=== PATIENT | male | born 1985 | race Caucasian/White ===

== ENCOUNTER 2022-01-05 09:03 | Outpatient (CLI) | payer OTHER | END 2022-01-05 09:04 | disposition critical access hospital (66) | LOC: EMS 09:03 | DX: R44.0 Auditory hallucinations (principal); R44.1 Visual hallucinations; R41.0 Disorientation, unspecified; R23.8 Other skin changes; M79.89 Other specified soft tissue disorders; Z59.00 Homelessness unspecified | CPT/HCPCS: A0425; A0429 ==

== ENCOUNTER 2022-01-05 09:25 | Emergency (ER) | payer OTHER ==
--- NOTE | 2022-01-05 12:09 | ED Physician Documentation ---
PD HPI WOUND RECHECK - Stated complaint Stated Complaint: WOUND CHECK - Chief complaint Chief Complaint: Wound - Histroy obtained from History obtained from: Patient - History of Present Illness Location: Back, Right Lower Extremity, Right Hand (index finger) Timing - onset: How many weeks ago (2) Associated symptoms: Redness, Swelling, Drainage. No: Fever Similar symptoms before: Has not had sx before Recently seen: Other (is at [facility]) - Additional information Additional information: 36-year-old Leonardo Pantoja has been sent to the emergency department from [facility] for evaluation of some sores on his body. He indicates that he had abscesses to the right fingertip the right posterior calf and his left back about 2 weeks ago and these he lanced and drained. He was asked by the facility to come have these checked out as there was some redness around all of them. Review of Systems Constitutional: denies: Fever Eyes: denies: Decreased vision Ears: denies: Ear pain Nose: denies: Rhinorrhea / runny nose, Congestion Throat: denies: Sore throat Cardiac: denies: Chest pain / pressure, Palpitations Respiratory: denies: Dyspnea, Cough GI: denies: Abdominal Pain, Nausea, Vomiting, Constipation, Diarrhea : denies: Dysuria, Frequency Skin: reports: Lesions, Bite / sting Musculoskeletal: denies: Neck pain, Back pain, Extremity pain Neurologic: denies: Generalized weakness, Focal weakness, Numbness PD PAST MEDICAL HISTORY - Present Medications Home Medications: Ambulatory Orders Medication Instructions Recorded Confirmed Sulfamethox/Trimeth 800/160 1 each PO BID #10 tablet 01/05/22 [Bactrim Ds] - Allergies Allergies/Adverse Reactions: Allergies Allergy/AdvReac Type Severity Reaction Status Date / Time gabapentin AdvReac Unknown Verified 01/05/22 10:23 PD ED PE NORMAL - Vitals Vital signs reviewed: Yes (wide pulse pressure) - General General: Alert and oriented X 3, No acute distress, Well developed/nourished - HEENT HEENT: Atraumatic, PERRL, EOMI - Respiratory Respiratory: No respiratory distress - Derm Derm: Normal color, Warm and dry, Other (2 cm ulceration to the posterior right calf minimal surrounding erythema consistent with healing abscess similar appearance left back minimal inflammation right index with resolving abscess to the fingertip.) - Neuro Neuro: Alert and oriented X 3, motion 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 2-12 intact, No motor deficit, No sensory deficit, Normal speech Eye Opening: Spontaneous Motor: Obeys Commands Verbal: Oriented GCS Score: 15 - Psych Psych: Normal mood, Normal affect Results - Vitals Vitals: Vital Signs - 24 hr 01/05/22 01/05/22 10:17 12:47 Temperature 36.7 C 36.7 C Heart Rate 69 65 Respiratory 14 16 Rate Blood Pressure 102/50 L 105/68 O2 Saturation 100 99 Oxygen O2 Source Room air PD MEDICAL DECISION MAKING - ED course Complexity details: considered differential, d/w patient ED course: 36-year-old male undergoing treatment apply to a was sent to the emergency department for evaluation of some healing abscesses. These do not appear significantly inflamed we will place patient on a short course of antibiotic and have her use warm compresses for resolution. Departure - Departure Disposition: 01 Home, Self Care Clinical Impression: Abscess Instructions: ED Staph Infec Abx Tx Only Follow-Up: [place] MD [Provider Admit Priv/Credential] - Prescriptions: Sulfamethox/Trimeth 800/160 [Bactrim Ds] 1 each PO BID #10 tablet Comments: Leonardo it looks like the abscesses you have are healing and we are providing some antibiotic for resolution. My recommendation is to take the antibiotic twice per day ( e-scribed to [facility] in [place]) and use a warm compress for about 10 to 15 minutes twice per day. Expect the skin to heal over the next 2 to 3 weeks. Discharge Date/Time: 01/05/22 12:48
[2022-01-05 12:48] VITALS: BP 105/68
== END 2022-01-05 12:48 | disposition home or self-care (01) ==
LOC: ED 09:25
DX: L02.416 Cutaneous abscess of left lower limb (principal); L02.511 Cutaneous abscess of right hand
CPT/HCPCS: 99282; 99283